=== PATIENT | male | born 1975 | race Caucasian/White ===

== ENCOUNTER 2016-07-02 17:35 | Emergency (ER) | payer MEDICARE, OTHER ==
[~2016-07-02 17:35] MED LIST: AFRIN3 ML; ANTIVERT; ANTIVERT PO; AUGMENTIN875 MG PO; BENAZEPRIL PO; CERTAGEN PO; CLEOCIN HCL300 M1 PO; CLEOCIN PO; CLINDAMYCIN HC300 MG PO; DEPAKOTE PO; DILTIAZEM 24HR120 M1 PO; FIORINAL CAPSUL1 CAP PO; FLAGYL PO; HCTZ PO; IBUPROFEN800 MG PO; LANOXIN PO; LANTUS100 U/ML SUBQ; LEVAQUIN PO; LIPITOR20 MG PO; LISINOPRIL10 MG PO; LISINOPRIL2.5 MG PO; LITHIUM PO; LORTAB 10/500 T1 TAB PO; LORTAB 5/500 TA1 TA1 PO; MECLIZINE HCL25 M1 PO; METFORMIN HCL500 M1 PO; NEXIUM PO; NORVASC PO; NORVASC10 MG PO; PERCOCET 7.5-31 EACH PO; PERCOCET 7.5/321 TAB PO; PRADAXA150 MG PO; PRAVACHOL PO; RYTHMOL150 M1 PO; RYTHMOL225 MG PO; ULTRAM PO; VICODIN 5/1 TAB 5/50 PO; ZEBETA10 MG PO; ZEBETA5 MG PO; ZOCOR; ZOCOR PO
== END 2016-07-02 17:47 | disposition home or self-care (01) ==
LOC: SED 17:35
DX: K02.9 Dental caries, unspecified (principal); I10 Essential (primary) hypertension; I48.91 Unspecified atrial fibrillation; K21.9 Gastro-esophageal reflux disease without esophagitis; F31.9 Bipolar disorder, unspecified; E11.9 Type 2 diabetes mellitus without complications; Z86.73 Personal history of transient ischemic attack (TIA), and cerebral infarction without residual deficits; Z79.4 Long term (current) use of insulin; Z79.899 Other long term (current) drug therapy; Z88.0 Allergy status to penicillin; Z88.5 Allergy status to narcotic agent; Z88.8 Allergy status to other drugs, medicaments and biological substances
CPT/HCPCS: 99282